=== PATIENT | male | born 1975 | race Caucasian/White ===

== ENCOUNTER → 2023-07-08 13:18 | Outpatient (CLI) | payer OTHER, SELFPAY ==
--- NOTE | 2023-07-08 | DI.RAD.S_ITS ---
PROCEDURE: XR HAND LT MIN 3V INDICATIONS: LEFT HAND PAIN TECHNIQUE: 3 views of the hand(s) acquired. COMPARISON: None. FINDINGS: Bones: No fractures or dislocations. Carpal bones are normally aligned. No suspicious bony lesions. Soft tissues: No suspicious soft tissue calcifications. IMPRESSION: No acute bony abnormality. Dictated by: Bruno Hudson M.D. on 07/08/2023 at 15:03 Approved by: Bruno Hudson M.D. on 07/08/2023 at 15:04
== END ==
PROVIDERS: PCP Physician Assistant; Referring Provider Physician Assistant; Visit Provider Physician Assistant
DX: M79.642 Pain in left hand (principal); E11.9 Type 2 diabetes mellitus without complications
CPT/HCPCS: 73130